=== PATIENT | female | born 1990 ===

== ENCOUNTER 2024-12-22 00:46 | Emergency (ER) | payer SELFPAY ==
--- NOTE | 2024-12-22 02:27 | ED.GENMED ---
History of Present Illness
<Natalia Whitten, MASTER POLICE DETECTIVE - Last Filed: 12/24/24 19:35>
General
Chief Complaint: Cold/Flu/URI Symptoms
Source: patient
Exam Limitations: none
Time Seen by Provider: 12/22/24 02:24
Nursing documentation reviewed up to this point in time: agreed with
History of Present Illness
History of Present Illness:
34-year-old female with history of asthma states she started to feel fatigued yesterday and took a 3-hour nap, today she developed general body aches and a sore throat. She presents with rigors, nausea but no vomiting, fever of 101.4
Past History
<Natalia Whitten, MASTER POLICE DETECTIVE - Last Filed: 12/24/24 19:35>
Past History
ED Past Medical History: Asthma
ED Past Surgical History: Other (Velma teeth)
Social History
Tobacco: Non-smoker
Alcohol: Occasional
Personal:
Living: with family
Employment: Employed
Review of Systems
<Natalia Whitten, MASTER POLICE DETECTIVE - Last Filed: 12/24/24 19:35>
Review of Systems
Allergies reviewed?: Yes
All Other Systems: ROS reviewed and negative except as documented in HPI and ROS
Constitutional: Reports fever, fatigue and chills
EENT: Reports sore throat
Respiratory: Reports cough; Denies trouble breathing
Cardiac: Denies chest pain
ABD/GI: Reports nausea; Denies abdominal pain, vomiting or diarrhea
: Denies dysuria, frequency or difficulty voiding
Musculoskeletal: Reports other (General Body aches); Denies neck pain
Skin: Reports no symptoms
Neurological: Reports no symptoms
Phy Exam
<Natalia Whitten, MASTER POLICE DETECTIVE - Last Filed: 12/24/24 19:35>
Physical Exam
Physical Exam:
GENERAL: Moderate distress with general body aches and rigors. A&Ox3.
CONSTITUTIONAL: 101.4
EYES: clear, conjunctivae injected
ENMT: Dry mucus membranes, Pharynx nl. Neck supple, no lymphadenopathy
RESPIRATORY: Regular respirations, nonlabored, lungs clear.
CARDIOVASCULAR: Regular rate and rhythm, no murmurs, no rubs.
GI: Soft, nontender, normal BS
MUSCULOSKELETAL: Moves with ease. Well perfused.
SKIN: Warm, dry, pink
PSYCH: Anxious mood and affect. Well kept, interactive and appropriate
NEUROLOGIC: Awake, alert and oriented. No focal neurological deficits
Sepsis
<Natalia Whitten, MASTER POLICE DETECTIVE - Last Filed: 12/24/24 19:35>
Sepsis Screening
Sepsis Assessment: Sepsis Ruled Out
Sepsis Screen
Sepsis Screen: Sepsis Ruled Out
Date: 12/24/24
Time: 19:35
Course
<Natalia Whitten, MASTER POLICE DETECTIVE - Last Filed: 12/24/24 19:35>
Orders/Labs/Results
Orders:
Orders
12/22/24 00:57
Influenza A+B Rapid Molecular Urgent
AJITH Source: Nasal Swab
Specimen Description:
Date Specimen was Collected: 12/22/24
Time Specimen was Collected: 00:55
12/22/24 02:24
0.9% Sodium Chloride 1000 ml [Nss] 1,000 ml IV BOLUS
12/22/24 02:25
Ketorolac [Toradol] 15 mg IV NOW STA
12/22/24 02:27
CR Chest - 2 Views Urgent
Comment:
Reason For Exam: Cough, fever, rigors
12/22/24 02:55
Oseltamivir Phosphate [Tamiflu] 75 mg PO NOW STA
12/22/24 02:59
Rapid Strep Group A Urgent
AJITH Source: Throat/Pharynx
Specimen Description:
Date Specimen was Collected: 12/22/24
Time Specimen was Collected: 02:45
Throat Culture [Throat Culture, Comprehensive] Urgent
AJITH Source: Throat/Pharynx
Specimen Description:
Date Specimen was Collected: 12/22/24
Time Specimen was Collected: 02:45
12/22/24 03:11
Acetaminophen [Tylenol] 650 mg PO NOW STA
12/22/24 03:44
COVID-19 Antigen Urgent
Source: Nasal Swab
12/22/24 04:27
Dexamethasone Sod Phosphate [Decadron] 10 mg IV NOW STA
Ibuprofen [Motrin] 600 mg PO NOW STA
12/22/24 02:59
12/22/24 02:59
Vital Signs
Initial and Last Documented VS:
Initial Vital Signs
Temp Pulse Resp BP Pulse Ox
101.4 F H 98 28 120/70 100
12/22/24 00:51 12/22/24 00:51 12/22/24 00:51 12/22/24 00:51 12/22/24 00:51
Last Documented Vital Signs
Temp Pulse Resp BP Pulse Ox
100.0 F 97 20 103/59 98
12/22/24 05:00 12/22/24 05:00 12/22/24 05:00 12/22/24 05:00 12/22/24 05:00
<Jennifer Way, DO - Last Filed: 12/22/24 06:45>
Orders/Labs/Results
Orders:
Orders
12/22/24 00:57
Influenza A+B Rapid Molecular Urgent
AJITH Source: Nasal Swab
Specimen Description:
Date Specimen was Collected: 12/22/24
Time Specimen was Collected: 00:55
12/22/24 02:24
0.9% Sodium Chloride 1000 ml [Nss] 1,000 ml IV BOLUS
12/22/24 02:25
Ketorolac [Toradol] 15 mg IV NOW STA
12/22/24 02:27
CR Chest - 2 Views Urgent
Comment:
Reason For Exam: Cough, fever, rigors
12/22/24 02:55
Oseltamivir Phosphate [Tamiflu] 75 mg PO NOW STA
12/22/24 02:59
Rapid Strep Group A Urgent
AJITH Source: Throat/Pharynx
Specimen Description:
Date Specimen was Collected: 12/22/24
Time Specimen was Collected: 02:45
Throat Culture [Throat Culture, Comprehensive] Urgent
AJITH Source: Throat/Pharynx
Specimen Description:
Date Specimen was Collected: 12/22/24
Time Specimen was Collected: 02:45
12/22/24 03:11
Acetaminophen [Tylenol] 650 mg PO NOW STA
12/22/24 03:44
COVID-19 Antigen Urgent
Source: Nasal Swab
12/22/24 04:27
Dexamethasone Sod Phosphate [Decadron] 10 mg IV NOW STA
Ibuprofen [Motrin] 600 mg PO NOW STA
12/22/24 02:59
12/22/24 02:59
Vital Signs
Initial and Last Documented VS:
Initial Vital Signs
Temp Pulse Resp BP Pulse Ox
101.4 F H 98 28 120/70 100
12/22/24 00:51 12/22/24 00:51 12/22/24 00:51 12/22/24 00:51 12/22/24 00:51
Last Documented Vital Signs
Temp Pulse Resp BP Pulse Ox
100.0 F 97 20 103/59 98
12/22/24 05:00 12/22/24 05:00 12/22/24 05:00 12/22/24 05:00 12/22/24 05:00
<Natalia Whitten, MASTER POLICE DETECTIVE - Last Filed: 12/24/24 19:35>
MDM/Problems Addressed
Differential Diagnosis Includes:
Flu, PNA, viral illness
MDM/Problems Addressed:
34-year-old female with history of asthma states she started to feel fatigued yesterday and took a 3-hour nap, today she developed general body aches and a sore throat. She presents with rigors, nausea but no vomiting, fever of 101.4
Flu test is neg but pt presents with flu symptoms so will treat for flu. Tamiflu given and rx sent to her pharmacy
CXR NAD
Rapid strep
CBC, CMP cancelled as they will add nothing and will not change treatment
Case discussed with Dr. Way who will assume care from this point
Rapid strep and Covid tests pending
<Natalia Whitten, MASTER POLICE DETECTIVE - Last Filed: 12/24/24 19:35>
*Critical Care Note
Total Time (30-74mins, 75-104mins- exclusive of procedures): Not Applicable
ED Attending Note
<Natalia Whitten, MASTER POLICE DETECTIVE - Last Filed: 12/24/24 19:35>
-
Portions of this chart may have been created with voice recognition software.� Occasional wrong word or��sound alike� substitutions may have occurred due to the inherent limitations of voice recognition software.
<Jennifer Way, - Last Filed: 12/22/24 06:45>
ED Attending Note
Patient seen and examined by attending physician: Yes
I performed a history and physical exam of patient and discussed management with resident, I reviewed resident's note and agree with documented findings and plan of care.: Yes
ED Attending Note:
34-year-old with history of intermittent asthma presents with 1 day history of URI symptoms, occasional dry cough, sore throat, hoarse voice. She complains of generalized fatigue and generalized myalgias.
Noted to be febrile.
Mildly hoarse voice is noted but no respiratory distress, no appreciable cough.
Posterior pharynx is without injection or edema nor exudate. Oral mucosa is moist.
Lungs are clear to auscultation.
Rapid strep, influenza and COVID are negative.
I suspect acute viral URI, acute laryngitis. I suspect similar virus that has been causing acute croup in younger children.
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
Current oral temperature 102 �F. Will give a dose of ibuprofen and will give a one-time dose of Decadron for the laryngitis.
Discussed supportive measures, staying well-hydrated on a daily basis, continuing ibuprofen versus Tylenol for fever, aches.
Home from work until fever free for 24 hours. Work note has been provided.
Prompt follow-up with PCP for recheck.
Discharge Plan
Departure
Patient Disposition: Home (Routine Discharge)
Date of Disposition: 12/22/24
Time of Disposition: 04:31
Patient with high blood pressure during this ER visit?: No
Condition: Fair
Discharge Problem:
Acute viral upper respiratory infection, Acute laryngitis
Instructions: Fever, Adult (DC), Upper respiratory infection in adults - Discharge instructions
Prescriptions:
New
oseltamivir [Tamiflu] 75 mg capsule
75 mg PO BID 5 Days Qty: 9 0RF
Referrals:
Your, doctor [Other] - As needed
Stand Alone Forms: Return to Work
Activity Restrictions/Additional Instructions:
As we discussed, I am treating you for the flu
Drink plenty of fluids
Tylenol 650 mg alternating with ibuprofen 600 mg every 3 hours as needed for body aches and fevers
I sent a prescription to your pharmacy for Tamiflu. You were given a dose here tonight.
Interventions
Interventions:
*Risk Screen - Suicide Last Done: 12/22/24 00:51
*General Assessment Last Done: 12/22/24 03:30
*Neglect/Abuse Screening Last Done: 12/22/24 00:51
*ED- Fall Risk Assessment Last Done: 12/22/24 03:30
*ED COVID-19 Vaccine History Last Done: 12/22/24 03:30
*Nursing Disposition Last Done: 12/22/24 05:00
ED- Pulmonary Assessment Last Done: 12/22/24 03:30
Discharge Date and Time
Discharge Date/Time: 12/22/24 05:00
Print Language: VINCENTIAN
[2024-12-22] MEDS: NSS 1000 IV (03:09)
[2024-12-22] MEDS: TORADOL 15 MG IV (03:09)
[2024-12-22] MEDS: TAMIFLU 75 MG PO (03:09)
[2024-12-22] MEDS: TYLENOL 650 MG PO (03:14)
[2024-12-22 04:13] LABS: COVID-19 Antigen Negative (Negative)
[2024-12-22] MEDS: MOTRIN 600 MG PO (04:42)
[2024-12-22] MEDS: DECADRON 10 MG IV (04:43)
== END 2024-12-22 05:00 | disposition home or self-care (01) ==
LOC: EMR 00:46
PROVIDERS: Registered Nurse; EMERGENCY PHYSICIAN Emergency Medicine
DX: J04.0 Acute laryngitis (principal); B97.89 Other viral agents as the cause of diseases classified elsewhere; J45.909 Unspecified asthma, uncomplicated; Z11.52 Encounter for screening for COVID-19
CPT/HCPCS: 99284; 96374; 96375; 96361; 71046; 87070; 87502; 87811; 87880